=== PATIENT | male | born 1995 | race African-American/Black ===

== ENCOUNTER 2016-09-20 17:53 | Emergency (ER) | payer BC ==
[~2016-09-20] VITALS: Ht 188 cm; Wt 70.8 kg
[2016-09-20 18:03] VITALS: BP 139/89
[2016-09-20] MEDS ORDERED: PROAIR HFA8.5 GM INH (18:17)
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
== END 2016-09-20 18:34 | disposition home or self-care (01) ==
LOC: ER 17:53
DX: J40 Bronchitis, not specified as acute or chronic (principal); F17.210 Nicotine dependence, cigarettes, uncomplicated; F12.10 Cannabis abuse, uncomplicated
CPT/HCPCS: 99283